=== PATIENT | female | born 1970 | race Caucasian/White ===

== ENCOUNTER → 2025-02-09 | Outpatient (CLI) | payer MEDICAID, SELFPAY ==
--- NOTE | 2025-02-09 09:25 | XR_ITS ---
Examination: CT chest with intravenous contrast CT chest without intravenous contrast 2-D reconstructions Date and time of exam:February 09, 2025 0937 hours INDICATIONS: Lung mass on outside examination 6 months ago CTDI:vol (mGy) 22.9 DLP: (mGycm) 836 Technique: Multiple axial sections of the thorax have been obtained. 3 mm slice thickness, from the hemidiaphragms to above the apices of the lungs. Mediastinal and lung density settings have been obtained. Intravenous contrast administered 60 cc Isovue-[id number]. Noncontrast images have also been obtained. 2-D sagittal coronal images obtained. Low dose protocols were performed. One or more of the following dose reduction techniques were used; automated exposure control, adjustment of the mA and/or KV according to patient size, use of iterative reconstruction technique. Findings: No thoracic aortic aneurysm dilatation or dissection No pulmonary artery filling defects Mild left hilar lymphadenopathy, 12 mm COPD with multiple areas of airspace destruction 11 mm 8mm pulmonary nodules in the left lower lobe axial image 196 4 mm pulmonary nodule in the right upper lobe image 181 3 mm pulmonary nodule right lower lobe image 251 Retrocardiac gastric hernia 8mm right lobe liver lesion axial image 132 Absent gallbladder No visualized pancreatic mass Moderate osteopenia IMPRESSION: COPD Multiple pulmonary nodules, the largest in the left lower lobe 8 mm, 11 mm, recommend 3-6 month follow-up continues CT chest without contrast 8 mm solid-appearing liver lesion, recommend MRI abdomen liver follow-up pre and postcontrast
== END | disposition home or self-care (01) ==
PROVIDERS: PCP Physician Assistant; Referring Provider Physician Assistant; Visit Provider Physician Assistant
DX: R60.9 Edema, unspecified (principal); J44.9 Chronic obstructive pulmonary disease, unspecified
CPT/HCPCS: 71270; A4649; Q9967

== ENCOUNTER → 2025-06-01 | Outpatient (CLI) | payer MEDICAID, SELFPAY ==
--- NOTE | 2025-06-01 12:00 | XR_ITS ---
Examination: MRI abdomen with intravenous contrast. MRI abdomen without intravenous contrast. Date and time of exam: June 01, 2025, 1213 hours INDICATIONS: Diagnosis other specified diseases of the liver, CT chest February 09, 2025 8 mm liver lesion Technique: Multiple axial, sagittal and coronal sections of the abdomen obtained. Transverse images, TR 6020, TE 107. T1 weighted transverse images, TR 582, TE 9.5. T2-weighted sagittal images, TR 4000, TE 105. T2-weighted sagittal images, TR 4000, TE 5. Coronal images, TR 4210, TE 107. Axial and coronal images are obtained post 19 cc intravenous injection, gadolinium. Findings: 6 mm 10 mm right lobe liver lesions with increased signal on the T2-weighted images These lesions show diffuse enhancement on the postcontrast study No biliary tract dilatation No common hepatic or common bile duct stones Negative for pancreatitis Spleen is not enlarged No hydronephrosis Aorta normal size No ascites IMPRESSION: 6. And 10 mm right lobe liver lesions with diffuse increased signal/enhancement on the postcontrast images Recommend hepatobiliary sonography follow-up to further assess these lesions
== END | disposition home or self-care (01) ==
PROVIDERS: PCP Physician Assistant; Referring Provider Physician Assistant; Visit Provider Physician Assistant
DX: K76.89 Other specified diseases of liver (principal)
CPT/HCPCS: 74183; A9577